=== PATIENT | male | born 1935 | race Caucasian/White ===

== ENCOUNTER 2019-08-14 11:12 | Emergency (ER) | payer MEDICARE, BC ==
[2019-08-14 11:24] VITALS: BP 181/81; PULSE 51
--- NOTE | 2019-08-14 11:40 | EDM.PDOC ---
ED HPI GENERAL MEDICAL PROBLEM - General Chief Complaint: Bite:Animal, Insect Stated Complaint: SWOLLEN LEFT HAND Time Seen by Provider: 08/14/19 11:29 Source of Information: Reports: Patient History Limitations: Reports: No Limitations - History of Present Illness INITIAL COMMENTS - FREE TEXT/NARRATIVE: 83-year-old male presents to the ED with increased swelling and limited mobility in his left index finger. Patient reports being hit repeatedly left dorsal hand and volar and dorsal aspect of his left index finger over a week ago. He did follow-up with his primary care physician Dr. Nielsen who prescribed tetanus toxoid update and antibiotic 3 times daily which he finished. He finished it 2 days ago. Presumably it was cephalexin. Reports the finger remains markedly swollen and is becoming more red and swollen over the last 48 hours since he discontinued the antibiotics. No systemic signs of illness such as fever chills nausea or vomiting. He has no redness traveling up his dorsal hand or wrist. Onset: Sudden Onset Date: 08/05/19 Duration: Day(s):, Getting Worse Location: Reports: Upper Extremity, Left (Left index finger) Quality: Reports: Ache, Other (Redness and swelling worsening) Severity: Moderate Improves with: Reports: None Worsens with: Reports: None Context: Reports: Trauma (Multiple cat bites). Denies: Activity, Exercise, Lifting, Sick Contact, Other ( as ago) Associated Symptoms: Reports: No Other Symptoms Treatments RN CHRONIC: Reports: Other (see below) (None.) - Related Data Allergies Allergy/AdvReac Type Severity Reaction Status Date / Time venom-honey bee Allergy Cannot Verified 08/14/19 11:24 [bee venom (honey bee)] Remember Home Meds: Home Meds Aspirin [Carroll Aspirin] 81 mg PO DAILY 02/18/16 [History] Fluticasone Propionate [Flonase] 1 spray NASBOTH ASDIRECTED PRN 02/18/16 [ History] Losartan/Hydrochlorothiazide [Losartan-HCTZ 100-25 MG] 1 tab PO DAILY 02/18/16 [ History] Simvastatin 20 mg PO DAILY 02/18/16 [History] metFORMIN HCl [Metformin HCl] 1,000 mg PO BID 02/18/16 [History] Amoxicillin/Potassium Clav [Augmentin 500-125 Tablet] 1 each PO BID #18 tablet 08/14/19 [Rx] Past Medical History HEENT History: Reports: Allergic Rhinitis Cardiovascular History: Reports: High Cholesterol, Hypertension Musculoskeletal History: Reports: Arthritis, Osteoarthritis Endocrine/Metabolic History: Reports: Diabetes, Type II (Currently on diet and metformin 1000 mg twice a day) Social & Family History - Living Situation & Occupation Living situation: Reports: Occupation: Retired ED ROS GENERAL - Review of Systems Review Of Systems: See Below Constitutional: Denies: Fever, Chills, Malaise, Weakness, Fatigue, Decreased Appetite, Weight Loss HEENT: Reports: Glasses Respiratory: Reports: No Symptoms Cardiovascular: Reports: Blood Pressure Problem, Dyspnea on Exertion. Denies: Edema, Lightheadedness Endocrine: Reports: Fatigue GI/Abdominal: Reports: No Symptoms : Reports: Frequency, Other Musculoskeletal: Reports: Joint Pain (Nocturia 2. Denies hips and low back neck and shoulders at times) Skin: Reports: Bruising, Erythema, Other (Marked swelling of the left index finger to about 2 times normal size with a combination of ecchymoses or dark purple discoloration and swelling. Multiple bites are present and there is some bruising from the dorsal aspect of the PIP joint mostly serous. The finger is only slightly warm to palpation.) Neurological: Reports: No Symptoms Psychiatric: Reports: No Symptoms Hematologic/Lymphatic: Reports: No Symptoms Immunologic: Reports: No Symptoms ED EXAM, ANIMAL BITE - Physical Exam Exam: See Below Exam Limited By: No Limitations General Appearance: Alert, WD/WN, No Apparent Distress, Other (Vital signs show temperature 35.9 which is likely incorrect. Pulse is sinus bradycardia at 51. Respiratory 15 sats 98% BP elevated 1 8181.) Eye Exam: Bilateral Eye: Normal Inspection Throat/Mouth: Normal Inspection, Normal Lips, Normal Oropharynx Head: Atraumatic, Normocephalic Neck: Normal Inspection, Supple, Non-Tender, Full Range of Motion. No: Lymphadenopathy (L), Lymphadenopathy (R) Respiratory/Chest: No Respiratory Distress, Lungs Clear, Normal Breath Sounds, No Accessory Muscle Use Cardiovascular: Normal Peripheral Pulses, Regular Rate, Rhythm, No Edema, No Murmur, No Rub, Other (Mildly hypertensive at the time of initial exam systolic hypertension) Extremities: Other (Examination of the left hand shows multiple healing bites to the dorsal aspect of his left hand and wrist. Major injury suffered was to the left index finger which is markedly swollen and slightly erythematous and slightly warm to palpation. There is serous drainage coming from the dorsal aspect of the PIP joint. No fluctuation of the tissues they are fairly firm to palpation suggesting inflammation only and no abscess. The entire finger is involved. There is no lymphangitis of the dorsal aspect of the left hand or forearm although there is a slight pink erythema over the MCP joint of the left finger.) Neurological: Alert, Oriented, CN II-XII Intact, Normal Cognition Psychiatric: Normal Affect, Normal Mood Skin Exam: Other Course - Vital Signs Text/Narrative:: 83-year-old male presents to the ED with a cat bite to the dorsal aspect of his left hand and left index finger that occurred over 10 days ago. He was seen by his primary care physician 2 days later and started on cephalexin presumably-- as the antibiotic was 3 times daily but the patient can't remember for sure what anabolic he was on. This antibiotic and Thursday and he really thinks that the swelling and redness of the index finger are worsening. Examination reveals cellulitis involving the left index finger but the hand wounds are healing satisfactorily. Suspect the finger may have suffered deeper bites. He has very limited ability to flex at the PIP joint and at the MCP joint due to swelling. The wound is very minimally warm to palpation and I do not believe needs to be opened and drained at this time. Plan clindamycin 900 mg IV Augmentin 500/125 mg by mouth now and to be taken twice a day for the next 10 days. He is to expect marked improvement in the swelling over the next 72 hours. I had him take a picture of the finger with his cell phone and to follow-up with Dr. Nielsen in 3 days time. Last Recorded V/S: Last Vital Signs Temp 35.9 C 08/14/19 11:18 Pulse 51 L 08/14/19 11:18 Resp 15 08/14/19 11:18 BP 181/81 H 08/14/19 11:18 Pulse Ox 98 08/14/19 11:18 - Orders/Labs/Meds Orders: Active Orders 24 hr Category Date Time Status Peripheral IV Care [RC] . DIRECTED Care 08/14/19 11:41 Active CBC WITH AUTO DIFF [HEME] Stat Lab 08/14/19 11:56 Ordered CRP [C-REACTIVE PROTEIN] [CHEM] Stat Lab 08/14/19 11:56 Ordered Sodium Chloride 0.9% [Saline Flush] Med 08/14/19 11:41 Active 10 ml FLUSH ASDIRECTED PRN Peripheral IV Insertion Adult [OM.PC] Stat Oth 08/14/19 11:40 Ordered Medication Orders Sodium Chloride (Saline Flush) 10 ml FLUSH ASDIRECTED PRN PRN Reason: Keep Vein Open Last Admin: 08/14/19 11:58 Dose: 10 ml Meds: Medications Generic Name Dose Route Start Last Admin Trade Name Freq PRN Reason Stop Dose Admin Sodium Chloride 10 ml 08/14/19 11:41 08/14/19 11:58 Saline Flush FLUSH 10 ml ASDIRECTED PRN Administration Keep Vein Open Discontinued Medications Generic Name Dose Route Start Last Admin Trade Name Freq PRN Reason Stop Dose Admin Amoxicillin/Clavulanate Potassium 1 tab 08/14/19 11:52 08/14/19 12:38 Augmentin 500 Mg\125 Mg PO 08/14/19 11:53 1 tab ONETIME ONE Administration Clindamycin Phosphate 900 mg/ 50 mls @ 100 mls/hr 08/14/19 11:41 08/14/19 11: 57 Premix IV 08/14/19 12:10 100 mls/hr ONETIME ONE Administration - Radiology Interpretation Free Text/Narrative:: 83-year-old male presents to the ED for evaluation of increased swelling and erythema of the left index finger pulse being bit by his own cat 9 days ago. He was seen initially in clinic and treated with cephalexin presumably 500 mg 3 times a day for a week which was done 2 days ago. Since finishing the antibiotic she feels that the finger is becoming more swollen and red. He denies that it's any more painful than it was. He has very limited range of motion particularly at the PIP and MCP joints. P does have serous drainage from the dorsal PIP joint. Obvious cellulitis infection of the finger. Fingers about 2 times normal size. Plan clindamycin 900 mg IV. Augmentin 500/125 mg twice a day for the next 10 days with the first tablet provided in the ED today. Advise follow-up with his primary care physician in 72 hours time. - Re-Assessments/Exams Free Text/Narrative Re-Assessment/Exam: 08/14/19 12:42 patient has completed his IV clindamycin 900 mg. He's also received his first tablet of Augmentin 500/125 mg per ora. Discharged home at this time to fill prescription for 18 more tablets of Augmentin 500/125 mg tabs and take a second one tonight at bedtime. Departure - Departure Time of Disposition: 12:32 Disposition: Home, Self-Care 01 Condition: Fair Clinical Impression: Cellulitis of finger of left hand Cat bite of finger Qualifiers: Encounter type: subsequent encounter Qualified Code(s): S61.259D - Open bite of unspecified finger without damage to nail, subsequent encounter - Discharge Information *PRESCRIPTION DRUG MONITORING PROGRAM REVIEWED*: Not Applicable *COPY OF PRESCRIPTION DRUG MONITORING REPORT IN PATIENT GEOVANNI: Not Applicable Prescriptions: Amoxicillin/Potassium Clav [Augmentin 500-125 Tablet] 1 each PO BID #18 tablet Instructions: Animal Bite, Adult, [id number], Cellulitis, Adult Referrals: Ok Nielsen Jr, MD [Primary Care Provider] - Forms: ED Department Discharge Additional Instructions: Evaluation the emergency room today in regards to persistent infection left index finger after being bit by-year-old cat 9 days ago. It appears that initial antibiotics did not cover all of the organisms that are often introduced under the skin from a cat bite. You're treated in the ED with a dose of clindamycin 900 mg intravenously. Also starting Augmentin 500/125 mg in the ED. You need to take this tablet again tonight and then twice daily for the next 9 days to clear up infection completely. Expect the finger and swelling to look much better in the next 72 hours. Suggest follow-up with Dr. Nielsen ideally on Thursday or this coming week for review of infection. - My Orders Last 24 Hours: My Active Orders 08/14/19 11:40 Peripheral IV Insertion Adult [OM.PC] Stat 08/14/19 11:41 Peripheral IV Care [RC] . DIRECTED Sodium Chloride 0.9% [Saline Flush] 10 ml FLUSH ASDIRECTED PRN 08/14/19 11:56 CBC WITH AUTO DIFF [HEME] Stat CRP [C-REACTIVE PROTEIN] [CHEM] Stat - Assessment/Plan Last 24 Hours: My Active Orders 08/14/19 11:40 Peripheral IV Insertion Adult [OM.PC] Stat 08/14/19 11:41 Peripheral IV Care [RC] . DIRECTED Sodium Chloride 0.9% [Saline Flush] 10 ml FLUSH ASDIRECTED PRN 08/14/19 11:56 CBC WITH AUTO DIFF [HEME] Stat CRP [C-REACTIVE PROTEIN] [CHEM] Stat
[2019-08-14] MEDS ORDERED: Sodium Chloride 0.9% 10 ML Syringe FLUSH PRN (11:41)
[2019-08-14] MEDS ORDERED: Clindamycin Phosphate in D5W 900 MG in Premix Bag 1 BAG IV ONE ×2 (11:41)
[2019-08-14] MEDS ORDERED: Amoxicillin/Clavulanate K 500-125 MG Tab PO ONE (11:52)
== END 2019-08-14 13:03 | disposition home or self-care (01) ==
LOC: JD.ED 11:12
DX: L03.012 Cellulitis of left finger (principal); S61.251D Open bite of left index finger without damage to nail, subsequent encounter; I10 Essential (primary) hypertension; E78.00 Pure hypercholesterolemia, unspecified; E11.9 Type 2 diabetes mellitus without complications; Z91.030 Bee allergy status; Z79.899 Other long term (current) drug therapy; Z79.82 Long term (current) use of aspirin; Z79.84 Long term (current) use of oral hypoglycemic drugs; W55.01XD Bitten by cat, subsequent encounter
CPT/HCPCS: 96365; 99283; A9270; J3490

== ENCOUNTER 2021-09-10 12:01 | Emergency (ER) | payer MEDICARE, BC | END 2021-09-10 12:52 | disposition left against medical advice (07) | LOC: JD.ED 12:01 | DX: R09.02 Hypoxemia (principal); Z53.21 Procedure and treatment not carried out due to patient leaving prior to being seen by health care provider ==

== ENCOUNTER 2021-09-10 14:04 | Emergency (ER) | payer MEDICARE, BC ==
[2021-09-10 14:56] VITALS: BP 145/72; PULSE 100
--- NOTE | 2021-09-10 15:07 | EDM.PDOC ---
ED HPI GENERAL MEDICAL PROBLEM - General Chief Complaint: Respiratory Problem Stated Complaint: LOW OXYGEN Time Seen by Provider: 09/10/21 14:57 Source of Information: Reports: Patient History Limitations: Reports: No Limitations - History of Present Illness INITIAL COMMENTS - FREE TEXT/NARRATIVE: 85-year-old male presents to the ED at the request of his surgeon Dr. Ramirez--Dr. Ramirez did work up in the clinic this morning with a bone marrow biopsy and lymph node biopsy. Patient has severe edema up past his knees bilaterally which is come on gradually over the last few months. He has a history of what sounds like a lymphoma found in his abdomen 7 or 8 years ago and has been followed by Dr. Saba-- oncology services. Everything was okay up until the last month or so. He states he suddenly was identified to be B12 deficient and anemic. This is the reason partially for a bone marrow biopsy. Patient denies any fever chills nausea vomiting. Appetite is so-so but he is maintaining his weight. He appreciates that his pants have become too tight and has had to loosen the belt notch or so over the last month. No ulcerations on either lower extremity but he can only wear slippers as his feet are too swollen. They do not seem to really improve overnight. Dr. Ramirez did do a bone marrow biopsy on the right posterior iliac crest and the patient has a large pressure bandage over this area. He also did lymph node biopsy from the left axilla which is giving the patient a mild amount of pain. Onset: Unknown/Unsure (Gradual increased edema over the last 6 weeks with now developing hypoxia.) Onset Date: 07/28/21 Duration: Week(s):, Getting Worse Location: Reports: Chest, Lower Extremity, Left (Mild nonproductive cough marked edema of both lower extremities up past the knees), Lower Extremity, Right ( is occurred over the last 6 weeks severe lower extremity edema past the knees), Other (Increased shortness of breath on minimal exertion and hypoxemia at rest i.e. 90 to 87% at rest. Desaturated to 82% with slow walking to the exam room.) Quality: Reports: Other (Both legs are very heavy and ache a bit. They are not cramping or painful) Severity: Severe Improves with: Reports: Rest (Dyspnea improves with rest) Worsens with: Reports: Movement (He is worse with movement with O2 sats desaturating to 82% on room air) Context: Denies: Activity, Exercise, Lifting, Sick Contact, Trauma, Other Associated Symptoms: Reports: Cough, Loss of Appetite, Malaise, Shortness of Breath, Weakness (Generalized weakness difficulty walking due to both legs weighing so much extra). Denies: No Other Symptoms, Confusion, Chest Pain, cough w sputum (Nonproductive intermittent cough.), Diaphoresis, Fever/Chills, Headaches (Decreased appetite.), Nausea/Vomiting, Rash, Seizure, Syncope Treatments REPAIRER ART OBJECTS: Reports: Other (see below) - Related Data Allergies Allergy/AdvReac Type Severity Reaction Status Date / Time venom-honey bee Allergy Cannot Verified 09/11/21 05:06 [bee venom (honey bee)] Remember Home Meds: Home Meds Aspirin [[place] Aspirin] 81 mg PO DAILY 02/18/16 [History] Fluticasone Propionate [Flonase] 1 spray NASBOTH ASDIRECTED PRN 02/18/16 [History] Losartan/Hydrochlorothiazide [Losartan-HCTZ 100-25 MG] 1 tab PO DAILY 02/18/16 [History] Simvastatin 20 mg PO DAILY 02/18/16 [History] metFORMIN HCl [Metformin HCl] 1,000 mg PO BID 02/18/16 [History] Amoxicillin/Potassium Clav [Augmentin 500-125 Tablet] 1 each PO BID #18 tablet 08/14/19 [Rx] Furosemide [Lasix] 40 mg PO ASDIRECTED #60 tablet 09/10/21 [Rx] Levothyroxine Sodium [Levothyroxine] 100 mcg PO DAILY #30 capsule 09/10/21 [Rx] Past Medical History HEENT History: Reports: Allergic Rhinitis Cardiovascular History: Reports: High Cholesterol, Hypertension Musculoskeletal History: Reports: Arthritis, Osteoarthritis (Affecting knees hips low back neck) Endocrine/Metabolic History: Reports: Diabetes, Type II (Currently on diet and metformin 1000 mg twice a day), Osteopenia, Other (See Below) (Recent diagnosis of B12 deficiency) Oncologic (Cancer) History: Reports: Non-Hodgkin's Lymphoma (Apparently identified 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 He was followed closely by Dr. Saba almost every 6 months. He has never required chemotherapy.) - Past Surgical History HEENT Surgical History: Reports: Cataract Surgery Social & Family History - Family History Family Medical History: No Pertinent Family History - Caffeine Use Caffeine Use: Reports: Coffee, Tea - Living Situation & Occupation Living situation: Reports: Occupation: Retired ED ROS GENERAL - Review of Systems Review Of Systems: See Below Constitutional: Reports: Malaise, Weakness, Fatigue, Decreased Appetite, Other (He states he is holding his own as far as his weight goes.). Denies: Fever, Chills HEENT: Reports: Glasses (Only for reading.), Other (Mildly hard of hearing does not wear hearing aids) Respiratory: Reports: Shortness of Breath, Cough. Denies: Wheezing, Pleuritic Chest Pain, Sputum (Nonproductive), Hemoptysis Cardiovascular: Reports: Blood Pressure Problem, Dyspnea on Exertion, Edema (Increasing edema both lower extremities up past the knees bilaterally over the last 6 to perhaps 8 weeks), Orthopnea. Denies: Chest Pain, Claudication (Chronic hypertension), Palpitations, PND, Syncope, Other Endocrine: Reports: Fatigue GI/Abdominal: Reports: Decreased Appetite (Appetite is so-so.). Denies: Diarrhea, Difficulty Swallowing, Melena, Nausea ( Not really hungry ever.), Vomiting : Reports: Frequency, Other (Known BPH. Up usually twice or 3 times a night to void) Musculoskeletal: Reports: Neck Pain, Shoulder Pain, Back Pain, Other (Knees and hips at times.) Skin: Reports: No Symptoms Neurological: Reports: No Symptoms. Denies: Confusion, Dizziness, Headache, Numbness, Paresthesia Psychiatric: Reports: No Symptoms Hematologic/Lymphatic: Reports: No Symptoms Immunologic: Reports: No Symptoms ED EXAM, GENERAL - Physical Exam Exam: See Below Exam Limited By: No Limitations General Appearance: Alert, WD/WN, No Apparent Distress, Other (Palate in appearance. Temperature is 36.6 degrees. Heart rate 100 and sinus respiratory is 20 with O2 sats of 87% room air. BP 145/72) Eye Exam: Bilateral Eye: Normal Inspection (Mild blepharal pallor bilaterally.), PERRL Throat/Mouth: Normal Voice, Other (Teeth are in poor condition. Tongue is slightly dry and coated. Patient has a area of scab over his right facial cheek over the maxillary sinus where apparently had a cystic lesion that was infected a month ago. It is slowly healing. However it has the appearance of's potential squamous cell car) Head: Atraumatic, Normocephalic, Other (Healing sore right facial cheek he states for the last month. States he developed an ingrown hair and a pustule that then drained. Has been placing topical antibiotic on it every night at bedtime it is approximately 1.3 cm in diameter and is scabbed with no signs of infection at this time) Neck: Normal Inspection, Non-Tender, Limited Range of Motion. No: Supple, Full Range of Motion, Lymphadenopathy (L), Lymphadenopathy (R) Respiratory/Chest: Respiratory Distress (Tachypnea at rest.) Cardiovascular: Regular Rate, Rhythm, No Gallop, No JVD. No: Normal Peripheral Pulses, No Edema Peripheral Pulses: 0: Posterior Tibial (L) (No pulses are palpable below the femorals in either his lower extremity due to severe edema both lower extremities), Posterior Tibial (R), Dorsalis Pedis (L), Dorsalis Pedis (R), 2+: Carotid (L), Carotid (R) GI/Abdominal: Normal Bowel Sounds, Soft, Non-Tender, No Organomegaly, Distended (I felt he was a bit distended and full and dull to percussion across the lower abdomen inferior to the umbilicus combined with mild ascites). No: Guarding, Rebound (Male) Exam: No: Scrotal Swelling, Scrotum Tenderness (L), Testicular Tenderness (L) Back Exam: Other (Mild kyphosis thoracic spine. Patient has had bone marrow biopsy with a large pressure dressing on the right lower back where bone marrow biopsy was done this morning.) Neurological: Alert, Oriented, CN II-XII Intact, Normal Cognition Psychiatric: Normal Affect, Normal Mood Skin Exam: Warm, Dry, Intact, Pallor. No: Normal Color #1 Interpretation EKG Date: 09/10/21 Time: 15:21 Rhythm: Other (Sinus arrhythmia with a rate of 80- 92/min) Rate (Beats/Min): 86 [place]: Normal P-Wave: Present QRS: Other (Right bundle branch block pattern. Decreased voltage limb leads.) ST-T: Other (Nonspecific T wave flattening aVF) QT: Prolonged (Mildly prolonged) EKG Interpretation Comments: Abnormal ECG Course - Vital Signs Last Recorded V/S: Last Vital Signs Temp 36.6 C 09/10/21 14:40 Pulse 100 09/10/21 14:40 Resp 20 09/10/21 14:40 BP 145/72 H 09/10/21 14:40 Pulse Ox 87 L 09/10/21 14:40 - Orders/Labs/Meds Labs: Laboratory Tests 09/10/21 09/10/21 09/10/21 Range/Units 15:16 15:19 15:30 WBC 6.21 (4.23-9.07) K/mm3 RBC 4.14 L (4.63-6.08) M/mm3 Hgb 10.2 L (13.7-17.5) gm/dl Hct 34.3 L (40.1-51.0) % MCV 82.9 (79.0-92.2) fl MCH 24.6 L (25.7-32.2) pg MCHC 29.7 L (32.2-35.5) g/dl RDW Std Deviation 48.9 H (35.1-43.9) fL Plt Count 400 H (163-337) K/mm3 MPV 9.5 (9.4-12.3) fl Neut % (Auto) 62.0 (34.0-67.9) % Lymph % (Auto) 25.3 (21.8-53.1) % [place] % (Auto) 11.1 (5.3-12.2) % Eos % (Auto) 0.5 L (0.8-7.0) Baso % (Auto) 0.8 (0.1-1.2) % Neut # (Auto) 3.85 (1.78-5.38) K/mm3 Lymph # (Auto) 1.57 (1.32-3.57) K/mm3 [place] # (Auto) 0.69 (0.30-0.82) K/mm3 Eos # (Auto) 0.03 L (0.04-0.54) K/mm3 Baso # (Auto) 0.05 (0.01-0.08) K/mm3 PT (9.7-12.0) SECONDS INR APTT (21.7-31.4) SECONDS D-Dimer, Quantitative (0.19-0.50) mg/L Puncture Site Rt radial ABG pH 7.33 L (7.35-7.45) ABG pCO2 50.6 H (35.0-45.0) mmHg ABG pO2 56.0 L (80.0-100.0) mmHg ABG HCO3 25.8 (22.0-26.0) meq/L ABG O2 Saturation 84.3 L (96.0-97.0) % ABG Base Excess 0.1 (-2-2.0) Max Test Positive O2 Delivery Device Room air Sodium (136-145) mEq/L Potassium (3.5-5.1) mEq/L Chloride (98-107) mEq/L Carbon Dioxide (21-32) mEq/L Anion Gap (5-15) BUN (7-18) mg/dL Creatinine (0.7-1.3) mg/dL Est Cr Clr Drug Dosing mL/min Estimated GFR (MDRD) (>60) mL/min BUN/Creatinine Ratio (14-18) Glucose (70-99) mg/dL Calcium (8.5-10.1) mg/dL Magnesium (1.8-2.4) mg/dL Total Bilirubin (0.2-1.0) mg/dL AST (15-37) U/L ALT (16-63) U/L Alkaline Phosphatase (46-116) U/L Troponin I (0.00-0.056) ng/mL C-Reactive Protein (<1.0) mg/dL NT-Pro-B Natriuret Pep (0-450) pg/mL Total Protein (6.4-8.2) g/dl Albumin (3.4-5.0) g/dl Globulin gm/dL Albumin/Globulin Ratio (1-2) TSH 3rd Generation (0.358-3.74) uIU/mL SARS-CoV-2 RNA (MARVIN) Negative (NEGATIVE) 09/10/21 09/10/21 09/10/21 Range/Units 15:30 15:30 15:30 WBC (4.23-9.07) K/mm3 RBC (4.63-6.08) M/mm3 Hgb (13.7-17.5) gm/dl Hct (40.1-51.0) % MCV (79.0-92.2) fl MCH (25.7-32.2) pg MCHC (32.2-35.5) g/dl RDW Std Deviation (35.1-43.9) fL Plt Count (163-337) K/mm3 MPV (9.4-12.3) fl Neut % (Auto) (34.0-67.9) % Lymph % (Auto) (21.8-53.1) % [place] % (Auto) (5.3-12.2) % Eos % (Auto) (0.8-7.0) Baso % (Auto) (0.1-1.2) % Neut # (Auto) (1.78-5.38) K/mm3 Lymph # (Auto) (1.32-3.57) K/mm3 [place] # (Auto) (0.30-0.82) K/mm3 Eos # (Auto) (0.04-0.54) K/mm3 Baso # (Auto) (0.01-0.08) K/mm3 PT 11.7 (9.7-12.0) SECONDS INR 1.06 APTT 24.8 (21.7-31.4) SECONDS D-Dimer, Quantitative 2.02 H (0.19-0.50) mg/L Puncture Site ABG pH (7.35-7.45) ABG pCO2 (35.0-45.0) mmHg ABG pO2 (80.0-100.0) mmHg ABG HCO3 (22.0-26.0) meq/L ABG O2 Saturation (96.0-97.0) % ABG Base Excess (-2-2.0) Max Test O2 Delivery Device Sodium 143 (136-145) mEq/L Potassium 5.1 (3.5-5.1) mEq/L Chloride 107 (98-107) mEq/L Carbon Dioxide 27 (21-32) mEq/L Anion Gap 14.1 (5-15) BUN 39 H (7-18) mg/dL Creatinine 1.6 H (0.7-1.3) mg/dL Est Cr Clr Drug Dosing 33.84 mL/min Estimated GFR (MDRD) 41 (>60) mL/min BUN/Creatinine Ratio 24.4 H (14-18) Glucose 114 H (70-99) mg/dL Calcium 9.0 (8.5-10.1) mg/dL Magnesium 1.4 L (1.8-2.4) mg/dL Total Bilirubin 0.3 (0.2-1.0) mg/dL AST 26 (15-37) U/L ALT 12 L (16-63) U/L Alkaline Phosphatase 112 (46-116) U/L Troponin I < 0.017 (0.00-0.056) ng/mL C-Reactive Protein 1.0 (<1.0) mg/dL NT-Pro-B Natriuret Pep 37316 H (0-450) pg/mL Total Protein 8.5 H (6.4-8.2) g/dl Albumin 2.6 L (3.4-5.0) g/dl Globulin 5.9 gm/dL Albumin/Globulin Ratio 0.4 L (1-2) TSH 3rd Generation 6.556 H (0.358-3.74) uIU/mL SARS-CoV-2 RNA (MARVIN) (NEGATIVE) Meds: Medications Discontinued Medications Generic Name Dose Route Start Last Admin Trade Name Freq PRN Reason Stop Dose Admin Furosemide 40 mg 09/10/21 19:23 09/10/21 19:32 Furosemide 40 Mg/4 Ml Vial IVPUSH 09/10/21 19:24 40 mg NOW ONE Administration Hydromorphone HCl 0.5 mg 09/10/21 18:24 09/10/21 18:56 Hydromorphone 0.5 Mg/0.5 Ml Syringe IVPUSH 09/10/21 18:25 0.5 mg ONETIME ONE Administration Ondansetron HCl 4 mg 09/10/21 18:24 09/10/21 18:57 Ondansetron 4 Mg/2 Ml Sdv IVPUSH 09/10/21 18:25 4 mg ONETIME ONE Administration Sodium Chloride 10 ml 09/10/21 18:23 09/10/21 18:57 Sodium Chloride 0.9% 10 Ml Syringe FLUSH 10 ml ASDIRECTED PRN Administration Keep Vein Open - Radiology Interpretation Free Text/Narrative:: 85-year-old male presents to the ED after being evaluated for bone marrow biopsy by this morning which she did undergo. Is unclear if he underwent lymph node biopsy as well. 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 Saba almost every 6 months. Over the last 6 weeks things seem to have deteriorated where he is developed B12 deficiency and anemia. This is the reason that the bone marrow biopsy was performed. Concern is whether or not he has a recurrence or lymphoma suddenly became aggressive. He is short of breath on minimal exertion and presents with O2 sats of only 88 to 90% on room air. He has a mild nonproductive cough. He does have some orthopnea. No past history of diagnosed congestive heart failure or ischemic heart disease. He is appreciated increasing edema both lower extremities up past the knees over the last month or more per week. He states his weight is staying stable but there is at least 8 pounds of fluid in each leg. Therefore he may actually be losing weight. Plan he will have routine labs performed including D-dimer and BNP. Depending on his renal function we will decide on CT of his chest abdomen pelvis with or without contrast. In the interim ABGs will be done and be placed on oxygen 2 L/min by nasal cannula. - Re-Assessments/Exams Free Text/Narrative Re-Assessment/Exam: 09/10/21 18:10 White count is 6.21 with the auto differential revealing 62% neutrophils. Hemoglobin is slightly low at 10.2 with hematocrit of 34.3. Platelet count is 400,000 slightly elevated. PT is 11.7 with an INR of 1.06. PTT is 24.8. D-dimer is slightly elevated at 2.02. ABGs revealed a pH of 7.33 with a PCO2 of 50.6 I CO2 retention. PO2 is 56.0 low. O2 saturations are 84.3% on no oxygen. Sodium was 143 with a potassium high normal at 5.1. Chloride 107 with a bicarb of 27. Anion gap is 14.1. BUN is 39 with a creatinine of 1.6. GFR is 41. BUN/creatinine ratio is 24.4 indicating some degree of dehydration. Glucose 114 with a calcium of 9.0. Magnesium is low at 1.4. Total bilirubin is 0.3. AST is 26 with an ALT of 12 and alkaline phosphatase is 112. Troponin I is less than 0.017. C-reactive protein is 1.0. BNP is 11,504. Total protein is 8.5 with an albumin fraction low at 2.6. Globulin is 5.9. TSH is elevated at 6.55 indicating subclinical hypothyroidism. COVID-19 screen is negative. Patient will be given Lasix 40 mg IV but will undergo CT pulmonary angiogram to rule out PE. His renal function is upper limits of ability to give contrast to with a creatinine of 1.6 but he is volume depleted with a BUN of 39. GFR is 41. 09/10/21 19:11 CT pulmonary angiogram has been completed. Pulmonary arteries are well opacified. No filling defects are seen to indicate pulmonary embolism. Thoracic aorta shows mild atherosclerotic calcification with no aneurysm. Mediastinum shows small lymph nodes which are slightly more prominent than usually seen. Heart is slightly enlarged. Visualized upper abdominal structures show small amount of ascites. Soft tissue density is seen within the central abdomen around the abdominal aorta suspicious for adenopathy. There is a small right-sided pleural effusion. Small to moderate size left-sided pleural effusion is also noted. Increased lymph nodes are seen within both axillary regions which are abnormal. Areas noted within the left axillary region of uncertain etiology please correlate. Lung window settings show mild nodularity with in both sides of the pleura which are cysts nonspecific but difficult to exclude early metastatic disease. Slight area of increased density is noted within the lingula most likely representing atelectasis. Mild atelectasis is noted within both lung bases. Bone window settings were reviewed. Scattered degenerative changes noted within the spine. No acute osseous findings identified. Patient is being worked up for recurrence of a lymphoma. Bone marrow biopsy was done at [facility] earlier today by . Lymph node biopsy carried out in the left axilla which is the reason for there is some subcutaneous air in this area. The CT findings are that of widespread lymphoma involving the abdomen, chest and obviously axillary lymph nodes. He does have mild anasarca 09/10/21 19:26 I have once again discussed the results with the patient and his female friend and the patient is adamant he wishes to try things at home. He will be given Lasix 40 mg IV and then an oral dose for home. He will be started on 40 mg of Lasix every morning and 20 mg in the p.m. between 2 and 3:00. This will be for 1 week and tentatively he would could be reduced to 40 mg once a day in the morning. He is to step on a scale daily and write down his weights and report to his physician in a week's time. He will need renal function and serum potassium levels checked at that time. His potassium at present is 5.0 I am not going to add any potassium to his treatment plan at this time. I will start him on thyroid supplementation starting at 100 mcg of levothyroxine daily. Departure - Departure Time of Disposition: 19:29 Disposition: Home, Self-Care 01 Condition: Poor Clinical Impression: Hypoxemia, Congestive heart failure, Ascites, malignant, Bilateral pleural effusion, Dependent edema, Lymphoma involving lung - Discharge Information *PRESCRIPTION DRUG MONITORING PROGRAM REVIEWED*: Not Applicable *COPY OF PRESCRIPTION DRUG MONITORING REPORT IN PATIENT GEOVANNI: Not Applicable Prescriptions: Furosemide [Lasix] 40 mg PO ASDIRECTED #60 tablet Levothyroxine Sodium [Levothyroxine] 100 mcg PO DAILY #30 capsule Instructions: Hypoxia, Hypoxemia Referrals: Reilly Singh MD [Primary Care Provider] - Forms: ED Department Discharge Additional Instructions: Evaluation in the emergency room today at the request of your surgeon . Dr. Ramirez identified that you were retaining a large amount of fluid particularly in your lower extremities and suspect in your abdomen on examination today. He did go ahead with your bone marrow biopsy and left axillary lymph node biopsy and then sent you to the ED for further evaluation. Evaluation in the emergency department reveals that you do have congestive heart failure and are retaining fluid in your legs thighs abdomen and portions of both lower lobes of your lungs. This fluid accumulation has occurred over the last several weeks and probably [address] scan of the chest abdomen pelvis identifies enlarged lymph nodes within the chest and within the abdomen compatible with recurrence of your lymphoma which was diagnosed initially 7 to 8 years ago. Multiple lymph nodes are present in both armpits as you are well aware. You made a decision at this time not to come into the hospital although it is certainly my suggestion. You will need to take water medication Lasix 40 mg every morning and 20 mg mid afternoon or half of the 40 mg tablet between 2 and 3:00 in the afternoon to promote fluid loss. You will need to step on the scale every morning when you first get up and marked down your weight to ensure that we are achieving fluid loss over time. Should arrange follow-up appointment with your physician in 7 days time. You will require further lab test on your kidneys and potassium levels after starting this new medication. Second medication will be thyroid replacement hormone since you were found to be underactive in your thyroid gland on today's evaluation you will need to take levothyroxine 100 mcg tablet once daily every morning about 1/2-hour before you take any food or any other medications. You may certainly return to the emergency room at any time if you feel increased shortness of breath or that you are not getting better. Sepsis Event Note (ED) - Evaluation Sepsis Screening Result: No Definite Risk
[2021-09-10] MEDS ORDERED: Sodium Chloride 0.9% 10 ML Syringe FLUSH PRN (18:23)
[2021-09-10] MEDS ORDERED: Ondansetron 4 MG/2 ML SDV IVPUSH ONE (18:24)
[2021-09-10] MEDS ORDERED: HYDROmorphone 0.5 MG/0.5 ML Syringe IVPUSH ONE (18:24)
--- NOTE | 2021-09-10 19:08 | CT ---
CT chest Technique: Multiple axial sections through the chest were obtained. Intervenous contrast was utilized. Study has been performed as a pulmonary angiogram protocol. Comparison: No prior chest imaging is available. Findings: Pulmonary arteries are well opacified. No filling defects are seen to indicate pulmonary embolism. Thoracic aorta shows mild atherosclerotic calcification with no aneurysm. Mediastinum shows small lymph nodes which are slightly more than usually seen. Heart is slightly enlarged. Visualized upper abdominal structures shows small amount of ascites. Soft tissue density is seen within the central abdomen around the abdominal aorta suspicious for adenopathy. Small right-sided pleural effusion is seen. Small to moderate size left-sided pleural effusion is noted. Increased lymph nodes are seen within both axillary regions which are abnormal. Air is noted within the left axillary region of uncertain etiology and please correlate. Lung window settings show mild nodularity within both sides of the pleura which are nonspecific but difficult to exclude early metastatic disease. Slight area of increased density is noted within the lingula most likely representing atelectasis. Mild atelectasis is noted within both lung bases. Bone window settings were reviewed. Scattered degenerative change is noted within the spine. No acute osseous finding is appreciated. Impression: 1. No findings of pulmonary embolism. 2. Adenopathy is seen within both axillary regions and difficult to exclude neoplasm. Additional adenopathy is noted within the mediastinum. 3. Air is seen within the left axillary region of uncertain etiology and please correlate if clinical reason is known. 4. Small right-sided pleural effusion and moderate left-sided pleural effusion. Small amount of ascites is seen around the liver. 5. Possible adenopathy around the abdominal aorta. Formal contrast-enhanced CT abdomen and pelvis study is needed. 6. Mild nodularity around both pleura within the lungs. Difficult to exclude early metastasis. Diagnostic code #9
[2021-09-10] MEDS ORDERED: Furosemide 40 MG/4 ML VIAL IVPUSH ONE (19:23)
== END 2021-09-10 20:12 | disposition home or self-care (01) ==
LOC: JD.ED 14:04
DX: R09.02 Hypoxemia (principal); J90 Pleural effusion, not elsewhere classified; I11.0 Hypertensive heart disease with heart failure; I50.9 Heart failure, unspecified; C85.82 Other specified types of non-Hodgkin lymphoma, intrathoracic lymph nodes; R18.0 Malignant ascites; E78.00 Pure hypercholesterolemia, unspecified; I10 Essential (primary) hypertension; M19.90 Unspecified osteoarthritis, unspecified site; E11.9 Type 2 diabetes mellitus without complications; Z79.84 Long term (current) use of oral hypoglycemic drugs; Z91.030 Bee allergy status; Z79.82 Long term (current) use of aspirin; Z79.899 Other long term (current) drug therapy; Z20.822 Contact with and (suspected) exposure to COVID-19
CPT/HCPCS: 36415; 36600; 71275; 80053; 82803; 83735; 83880; 84443; 84484; 85025; 85379; 85610; 85730; 86140; 93005; 96374; 96375; 99284; J1170; J1940; J2405; U0002

== ENCOUNTER 2021-09-11 04:59 | Inpatient (IN) | payer MEDICARE, BC ==
--- NOTE | 2021-09-11 05:49 | EDM.PDOC ---
<Clinton Stern A - Last Filed: 09/11/21 13:58> ED HPI GENERAL MEDICAL PROBLEM - General Chief Complaint: General Stated Complaint: [facility] Time Seen by Provider: 09/11/21 05:18 - Related Data Allergies Allergy/AdvReac Type Severity Reaction Status Date / Time venom-honey bee Allergy Cannot Verified 09/11/21 05:06 [bee venom (honey bee)] Remember Home Meds: Home Meds Aspirin [[place] Aspirin] 81 mg PO DAILY 02/18/16 [History] Fluticasone Propionate [Flonase] 1 spray NASBOTH ASDIRECTED PRN 02/18/16 [History] Losartan/Hydrochlorothiazide [Losartan-HCTZ 100-25 MG] 1 tab PO DAILY 02/18/16 [History] Simvastatin 20 mg PO DAILY 02/18/16 [History] metFORMIN HCl [Metformin HCl] 1,000 mg PO BID 02/18/16 [History] Amoxicillin/Potassium Clav [Augmentin 500-125 Tablet] 1 each PO BID #18 tablet 08/14/19 [Rx] Furosemide [Lasix] 40 mg PO ASDIRECTED #60 tablet 09/10/21 [Rx] Levothyroxine Sodium [Levothyroxine] 100 mcg PO DAILY #30 capsule 09/10/21 [Rx] Course - Re-Assessments/Exams Free Text/Narrative Re-Assessment/Exam: 09/11/21 13:[address] Ramirez and he agreed to the admission for comfort care. Departure - Departure Time of Disposition: 14:00 Disposition: Admitted As Inpatient 68 Condition: Serious Clinical Impression: Lactic acidosis, Ischemic leg, Unresponsive, Hyperkalemia - Discharge Information <Conrad Kaiser A - Last Filed: 09/11/21 19:21> ED HPI GENERAL MEDICAL PROBLEM - General Source of Information: Reports: Patient, Old Records (ED visit 09/10/2021) History Limitations: Reports: Physical Impairment (Pt [place]) - History of Present Illness INITIAL COMMENTS - FREE TEXT/NARRATIVE: Mr. Vásquez is a very pleasant 85-year-old gentleman who is now brought to the ED after he got out of bed and fell around 04:30 this morning. He states that his right ankle hurts - it is unclear if right ankle pain is what caused him to fall, or if he injured his right ankle in the fall. He is also complaining of bilateral lower extremity edema, however, that is a longstanding issue. He denies any other injuries. Medical records indicate that the patient was seen in this ED yesterday, 09/10/2021, after being sent over by his Surgeon, following a bone marrow biopsy and lymph node biopsy yesterday morning, for dyspnea on exertion and low oxygen saturation. Please see that ED record for details, but, in short, his work-up found his D-dimer to be elevated to 2.02, with a CT angiogram negative for pulmonary embolus but suggestive of metastatic disease, his BUN/Cr was elevated at 39/1.6, his magnesium level was depressed at 1.4, his TSH was elevated at 6.556, and his pro-BNP was elevated at 11,504. Admission to the hospital was recommended, but the patient was adamant that he be discharged home, therefore he was discharged with prescriptions for levothyroxine and oral furosemide. In the ED this morning, the patient's initial BP is found to be mildly depressed at 115/48, with slight tachycardia of 102 bpm and slight tachypnea of 25 rpm. He is afebrile, saturating 91% on room air, however, the pulse oximeter waveform is poor and felt likely to be inaccurately low. Nevertheless, the patient was placed on 2 L of oxygen per nasal cannula. The patient appears to be somewhat sleepy, but easily aroused to verbal stimuli. He is in no acute distress. He is very hard of hearing, and does not appear to understand most of my questions. PMHx, PSHx, and SocHx per prior medical records. The patient's PCP is Dr. Reilly Singh. His Oncologist is Dr. Tab Decker. His Surgeon is Dr. Librado Ramirez. His vaccination status is not known. Past Medical History HEENT History: Reports: Allergic Rhinitis, Impaired Vision Other HEENT History: Wears glasses Cardiovascular History: Reports: High Cholesterol, Hypertension Musculoskeletal History: Reports: Arthritis, Osteoarthritis Endocrine/Metabolic History: Reports: Diabetes, Type II, Osteopenia, Other (See Below) Oncologic (Cancer) History: Reports: Non-Hodgkin's Lymphoma - Past Surgical History HEENT Surgical History: Reports: Cataract Surgery Social & Family History - Family History Family Medical History: No Pertinent Family History - Tobacco Use Tobacco Use Status *Q: Unknown Ever Used Tobacco - Caffeine Use Caffeine Use: Reports: Coffee, Tea - Living Situation & Occupation Living situation: Reports: Occupation: Retired ED ROS GENERAL - Review of Systems Review Of Systems: Unable To Obtain Reason Not Obtained: Patient does not understand questions ED EXAM, GENERAL - Physical Exam Exam: See Below Exam Limited By: No Limitations General Appearance: No Apparent Distress, Lethargic (Somnolent, but arousable to verbal stimuli) Eye Exam: Bilateral Eye: EOMI, Normal Inspection Ears: Normal External Exam, Hearing Loss Nose: Normal Inspection Throat/Mouth: Normal Inspection, Normal Lips, No Airway Compromise Head: Atraumatic, Normocephalic Neck: Normal Inspection, Full Range of Motion Respiratory/Chest: No Respiratory Distress, Lungs Clear, Normal Breath Sounds, No Accessory Muscle Use Cardiovascular: Normal Peripheral Pulses, No Gallop, No JVD, No Murmur, No Rub, Tachycardia (regular) Peripheral Pulses: 0: Femoral (L), Femoral (R), Popliteal (L), Popliteal (R), Posterior Tibial (L), Posterior Tibial (R), Dorsalis Pedis (L), Dorsalis Pedis (R), 1+: Radial (L), Radial (R) GI/Abdominal: Normal Bowel Sounds, Soft, Non-Tender, No Organomegaly, No Distention, No Abnormal Bruit, No Mass Back Exam: Normal Inspection, Full Range of Motion, NT Extremities: Other (2+ pitting pretibial LLE, 3+ RLE. Both lower extremities are very cool to palpation with no palpable pulses, but the distal right lower extremity is very cold with no capillary refill and completely insensate. Pt unable to move Rt toes; has some movement to Lt toes. Rt foot with purplish hue.) Neurological: Other (Somnolent but arousable) Psychiatric: Normal Affect Skin Exam: Dry, Intact, No Rash Course - Vital Signs Last Recorded V/S: Last Vital Signs Temp 36.6 C 09/11/21 15:34 Pulse 111 H 09/11/21 15:34 Resp 36 H 09/11/21 15:34 BP 87/41 L 09/11/21 15:34 Pulse Ox 82 L 09/11/21 15:34 - Orders/Labs/Meds Orders: Active Orders 24 hr Category Date Time Status Patient Status [ADT] Routine ADT 09/11/21 12:18 Active Nothing per Oral Now Diet [DIET] Diet 09/11/21 Dinner Active Atropine 1% [Atropine 1% Ophth Soln] Med 09/11/21 12:22 Active See Dose Instructions SL Q2H PRN Sodium Chloride 0.9% [Saline Flush] Med 09/11/21 12:18 Active 10 ml FLUSH ASDIRECTED PRN Peripheral IV Insertion Adult [OM.PC] Routine Oth 09/11/21 12:18 Ordered Saline Lock Insert [OM.PC] Routine Oth 09/11/21 12:18 Ordered Resuscitation Status Routine Resus Stat 09/11/21 12:18 Ordered Medication Orders Atropine Sulfate (Atropine 1% Ophth Soln 5 Ml Bottle) 0 ml SL Q2H PRN PRN Reason: Copius Secretions Morphine Sulfate 100 mg/ (Sodium Chloride) 100 mls @ 2 mls/hr IV TITRATE AMEYA; Protocol Last Admin: 09/11/21 16:28 Dose: 2 mg/hr, 2 mls/hr Documented by: WAIDMIC Lorazepam (Lorazepam 2 Mg/Ml Sdv) 2 mg IVPUSH Q1H PRN PRN Reason: Agitation Last Admin: 09/11/21 15:47 Dose: 2 mg Documented by: WAIDMIC Sodium Chloride (Sodium Chloride 0.9% 10 Ml Syringe) 10 ml FLUSH ASDIRECTED PRN PRN Reason: Keep Vein Open Labs: Laboratory Tests 09/11/21 09/11/21 09/11/21 Range/Units 05:14 05:49 06:02 WBC 8.89 (4.23-9.07) K/mm3 RBC 4.14 L (4.63-6.08) M/mm3 Hgb 10.2 L (13.7-17.5) gm/dl Hct 34.9 L (40.1-51.0) % MCV 84.3 (79.0-92.2) fl MCH 24.6 L (25.7-32.2) pg MCHC 29.2 L (32.2-35.5) g/dl RDW Std Deviation 50.4 H (35.1-43.9) fL Plt Count 365 H (163-337) K/mm3 MPV 9.6 (9.4-12.3) fl Neutrophils % (Manual) 85 H (40-60) % Band Neutrophils % 0 (0-10) % Lymphocytes % (Manual) 11 L (20-40) % Atypical Lymphs % 0 % Monocytes % (Manual) 4 (2-10) % Eosinophils % (Manual) 0 L (0.8-7.0) % Basophils % (Manual) 0 L (0.2-1.2) Platelet Estimate Adequate Polychromasia 1+ slight Hypochromasia 1+ slight Anisocytosis 1+ slight RBC Morph Comment Not Reportable Puncture Site Lt radial ABG pH 7.15 L* (7.35-7.45) ABG pCO2 73.2 H* (35.0-45.0) mmHg ABG pO2 70.0 L (80.0-100.0) mmHg ABG HCO3 24.3 (22.0-26.0) meq/L ABG O2 Saturation 85.6 L (96.0-97.0) % ABG Base Excess -4.9 L (-2-2.0) O2 Delivery Device Nasal cannula Oxygen Flow Rate 2.0 Sodium (136-145) mEq/L Potassium (3.5-5.1) mEq/L Chloride (98-107) mEq/L Carbon Dioxide (21-32) mEq/L Anion Gap (5-15) BUN (7-18) mg/dL Creatinine (0.7-1.3) mg/dL Est Cr Clr Drug Dosing mL/min Estimated GFR (MDRD) (>60) mL/min BUN/Creatinine Ratio (14-18) Glucose (70-99) mg/dL POC Glucose 63 L (70-99) mg/dL Lactic Acid (0.4-2.0) mmol/L Calcium (8.5-10.1) mg/dL Magnesium (1.8-2.4) mg/dL Total Bilirubin (0.2-1.0) mg/dL AST (15-37) U/L ALT (16-63) U/L Alkaline Phosphatase (46-116) U/L Total Protein (6.4-8.2) g/dl Albumin (3.4-5.0) g/dl Globulin gm/dL Albumin/Globulin Ratio (1-2) 09/11/21 09/11/21 09/11/21 Range/Units 06:02 06:02 09:18 WBC (4.23-9.07) K/mm3 RBC (4.63-6.08) M/mm3 Hgb (13.7-17.5) gm/dl Hct (40.1-51.0) % MCV (79.0-92.2) fl MCH (25.7-32.2) pg MCHC (32.2-35.5) g/dl RDW Std Deviation (35.1-43.9) fL Plt Count (163-337) K/mm3 MPV (9.4-12.3) fl Neutrophils % (Manual) (40-60) % Band Neutrophils % (0-10) % Lymphocytes % (Manual) (20-40) % Atypical Lymphs % % Monocytes % (Manual) (2-10) % Eosinophils % (Manual) (0.8-7.0) % Basophils % (Manual) (0.2-1.2) Platelet Estimate Polychromasia Hypochromasia Anisocytosis RBC Morph Comment Puncture Site ABG pH (7.35-7.45) ABG pCO2 (35.0-45.0) mmHg ABG pO2 (80.0-100.0) mmHg ABG HCO3 (22.0-26.0) meq/L ABG O2 Saturation (96.0-97.0) % ABG Base Excess (-2-2.0) O2 Delivery Device Oxygen Flow Rate Sodium 142 (136-145) mEq/L Potassium 6.8 H* D (3.5-5.1) mEq/L Chloride 105 (98-107) mEq/L Carbon Dioxide 24 (21-32) mEq/L Anion Gap 19.8 H (5-15) BUN 42 H (7-18) mg/dL Creatinine 2.3 H (0.7-1.3) mg/dL Est Cr Clr Drug Dosing 22.75 mL/min Estimated GFR (MDRD) 27 (>60) mL/min BUN/Creatinine Ratio 18.3 H (14-18) Glucose 95 (70-99) mg/dL POC Glucose (70-99) mg/dL Lactic Acid 4.7 H* 2.6 H* (0.4-2.0) mmol/L Calcium 8.6 (8.5-10.1) mg/dL Magnesium 1.6 L (1.8-2.4) mg/dL Total Bilirubin 0.6 (0.2-1.0) mg/dL AST 428 H (15-37) U/L ALT 179 H (16-63) U/L Alkaline Phosphatase 119 H (46-116) U/L Total Protein 8.5 H (6.4-8.2) g/dl Albumin 2.7 L (3.4-5.0) g/dl Globulin 5.8 gm/dL Albumin/Globulin Ratio 0.5 L (1-2) 09/11/21 Range/Units 09:23 WBC (4.23-9.07) K/mm3 RBC (4.63-6.08) M/mm3 Hgb (13.7-17.5) gm/dl Hct (40.1-51.0) % MCV (79.0-92.2) fl MCH (25.7-32.2) pg MCHC (32.2-35.5) g/dl RDW Std Deviation (35.1-43.9) fL Plt Count (163-337) K/mm3 MPV (9.4-12.3) fl Neutrophils % (Manual) (40-60) % Band Neutrophils % (0-10) % Lymphocytes % (Manual) (20-40) % Atypical Lymphs % % Monocytes % (Manual) (2-10) % Eosinophils % (Manual) (0.8-7.0) % Basophils % (Manual) (0.2-1.2) Platelet Estimate Polychromasia Hypochromasia Anisocytosis RBC Morph Comment Puncture Site ABG pH (7.35-7.45) ABG pCO2 (35.0-45.0) mmHg ABG pO2 (80.0-100.0) mmHg ABG HCO3 (22.0-26.0) meq/L ABG O2 Saturation (96.0-97.0) % ABG Base Excess (-2-2.0) O2 Delivery Device Oxygen Flow Rate Sodium (136-145) mEq/L Potassium (3.5-5.1) mEq/L Chloride (98-107) mEq/L Carbon Dioxide (21-32) mEq/L Anion Gap (5-15) BUN (7-18) mg/dL Creatinine (0.7-1.3) mg/dL Est Cr Clr Drug Dosing mL/min Estimated GFR (MDRD) (>60) mL/min BUN/Creatinine Ratio (14-18) Glucose (70-99) mg/dL POC Glucose 87 (70-99) mg/dL Lactic Acid (0.4-2.0) mmol/L Calcium (8.5-10.1) mg/dL Magnesium (1.8-2.4) mg/dL Total Bilirubin (0.2-1.0) mg/dL AST (15-37) U/L ALT (16-63) U/L Alkaline Phosphatase (46-116) U/L Total Protein (6.4-8.2) g/dl Albumin (3.4-5.0) g/dl Globulin gm/dL Albumin/Globulin Ratio (1-2) Meds: Medications Generic Name Dose Route Start Last Admin Trade Name Freq PRN Reason Stop Dose Admin Atropine Sulfate 0 ml 09/11/21 12:22 Atropine 1% Ophth Soln 5 Ml Bottle SL Q2H PRN Copius Secretions Morphine Sulfate 100 mg/ 100 mls @ 2 mls/hr 09/11/21 15:15 09/11/21 16:28 Sodium Chloride IV 2 mg/hr TITRATE AMEYA 2 mls/hr Administration Protocol 2 MG/HR Lorazepam 2 mg 09/11/21 15:43 09/11/21 15:47 Lorazepam 2 Mg/Ml Sdv IVPUSH 2 mg Q1H PRN Administration Agitation Sodium Chloride 10 ml 09/11/21 12:18 Sodium Chloride 0.9% 10 Ml Syringe FLUSH ASDIRECTED PRN Keep Vein Open Discontinued Medications Generic Name Dose Route Start Last Admin Trade Name Freq PRN Reason Stop Dose Admin Sodium Chloride 500 mls @ 1,000 mls/hr 09/11/21 08:49 09/11/21 09:25 Normal Saline IV 09/11/21 09:18 1,000 mls/hr .BOLUS ONE Administration Morphine Sulfate 100 mg/ 100 mls @ 2 mls/hr 09/11/21 13:30 Sodium Chloride IV CONTINUOUS AMEYA Protocol 2 MG/HR Lorazepam 2 mg 09/11/21 12:22 Lorazepam 2 Mg/Ml Sdv IM Q1H PRN Agitation - Re-Assessments/Exams Free Text/Narrative Re-Assessment/Exam: 09/11/21 05:46 The patient's distal right leg, ankle, and foot are very pale and cold to palpation and completely insensate. He is unable to move his toes when asked. No right lower extremity (or LLE) pulses are palpable. While the patient likely has significant peripheral vascular disease involving both of his lower extremities, I am concerned about a distal right lower extremity arterial occlusion. I have therefore ordered an arterial Doppler of the right lower extremity to be performed KRISHNA. In the meantime, we will obtain x-rays of the right ankle to make sure that he did not actually injure it when he fell this morning, along with some blood work and an ABG. 09/11/21 07:01 3-view radiographs of the right ankle are read by Dr. Rebolledo as: 1. Findings as described above. 2. No acute bony abnormality is seen on right ankle study. 09/11/21 07:24 Doppler ultrasound of the right lower extremity is read by Dr. Rebolledo as: 1. Decreased arterial velocity measurements within the superficial femoral artery as well as diminished velocities within the peroneal, posterior tibial and dorsalis pedis arteries. Findings are compatible with multilevel and fairly severe arterial stenosis. 2. Mild thrombophlebitis within the thigh. 09/11/21 08:14 The patient's CBC is remarkable for an H/H slightly depressed at 10.2/34.9, with slight thrombocytosis of 365,000, and the remainder of his CBC being unremarkable. His CMP is remarkable for hyperkalemia of 6.8, and a BUN/Cr elevated at 42/2.3. His AST/ALT are significantly elevated at 428/179, an alkaline phosphatase slightly elevated at 119, and the remainder of his CMP being unremarkable. His magnesium level is slightly depressed at 1.6. His lactic acid level is elevated at 4.7. His ABG demonstrates a primary respiratory acidosis with secondary metabolic acidosis and metabolic alkalosis. The patient's potassium was 5.1 yesterday, with a BUN/Cr of 39/1.6. His AST/ALT were 26/1.2, respectively. The patient appears to have an ischemic distal right lower extremity. He needs a Vascular Surgeon and an ICU bed, however, we have contacted [facility], [facility], [facility], [facility], [place] in [facility], [place], and [facility], finding no bed availability. Case discussed with Thania at the [facility]. She will endeavor to find a suitable bed for the patient. 09/11/21 08:59 At present, the patient is lying on his back, staring at the ceiling. I endeavored to ask him what his CODE STATUS was, however, while he follows my movements with his eyes, he did not make any effort to answer my questions. I am concerned that the patient is dying. I attempted to call the patient's son, Tyler, at the number provided, but got a recording indicating that the line is disconnected. 09/11/21 09:42 Contacted by the patient's son, Tyler. I informed him of the situation. He confirmed that the patient is a , and that he is the patient's only child. I explained that it appears that the patient is dying, and that given his situation, I believe that an attempt at resuscitation would be futile. I therefore recommended that the patient be made DNR/DNI. Tyler agreed. We will attempt to keep the patient comfortable. Tyler is going to make arrangements to come to [place] as fast as possible. Since there is a high likelihood that the patient will prior to Tyler's arrival, Tyler will contact us with the name of a home that we can contact if and when that occurs. Case discussed with Dr. Stern, and care of the patient turned over to him at this time, for change of shift. Departure - Discharge Information *PRESCRIPTION DRUG MONITORING PROGRAM REVIEWED*: Not Applicable Sepsis Event Note (ED) - Evaluation Sepsis Screening Result: No Definite Risk - Focused Exam Vital Signs: Vital Signs Pulse Resp Pulse Ox 09/11/21 10:54 88 14 89 L
--- NOTE | 2021-09-11 06:57 | CR ---
Right ankle: 3 views of the right ankle were obtained. Comparison: No prior ankle study is available. Plantar spur is noted. Vascular calcification is seen. Ankle mortise is symmetric. No acute fracture or dislocation is seen. Impression: 1. Findings as described above. 2. No acute bony abnormality is seen on right ankle study. Diagnostic code #2
--- NOTE | 2021-09-11 07:23 | US ---
Right lower extremity arterial exam: Duplex and color Doppler evaluation was obtained of the right common femoral, superficial femoral, popliteal, peroneal, posterior tibial, and dorsalis pedis arteries. Limitations: Uncooperative patient, Moving leg Comparison: No prior arterial study is available. Findings: Diminished flow is seen within the superficial femoral artery as well as diminished flow within the distal popliteal, peroneal, posterior tibial and dorsalis pedis arteries. There is a hypoechoic area within the right thigh raising the possibility of thrombophlebitis. Impression: 1. Decreased arterial velocity measurements within the superficial femoral artery as well as diminished velocities within the peroneal, posterior tibial and dorsalis pedis arteries. Findings are compatible with multilevel and fairly severe arterial stenosis. 2. Mild thrombophlebitis within the thigh. Diagnostic code #3
[2021-09-11] MEDS ORDERED: Sodium Chloride 0.9% 500 ML IV ONE (08:49)
[2021-09-11] MEDS ORDERED: Sodium Chloride 0.9% 10 ML Syringe FLUSH PRN (12:18)
[2021-09-11] MEDS ORDERED: Atropine 1% Ophth Soln 5 ML BOTTLE SL PRN (12:22)
[2021-09-11] MEDS ORDERED: LORazepam 2 MG/ML SDV IM PRN (12:22)
--- NOTE | 2021-09-11 12:35 | PCM.HP.2 ---
H&P History of Present Illness - General Date of Service: 09/11/21 Admit Problem/Dx: Admission Diagnosis/Problem Admission Diagnosis/Problem Sepsis Source of Information: Provider - History of Present Illness Initial Comments - Free Text/Narative: Patient is an 85-year-old male with a past medical history as listed below who presents to the hospital with complaints of a fall earlier this morning and severe pain in his right foot. For complete details regarding his presentation yesterday to the emergency department as well as his ER course, please see ER documentation by Drs. Kaiser and Leena. 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 The patient was offered admission for abnormalities noted during his ER course. The patient was adamant about going home. The patient was discharged. Apparently, early this morning the patient fell and was experiencing right foot pain. He presented again for evaluation. The patient was somewhat lethargic and was able to answer some questions. His work-up has been notable for significant abnormalities including a dual acid-base disorder including respiratory acidosis as well as a lactic acidosis. This is without compensation his bicarb was normal. He was showing signs of an ischemic right foot which is ultimately causing the lactic acidosis, sepsis picture and development of distributive shock physiology and signs of endorgan failure. As the patient's family could not be contacted for many hours, there were initial efforts to have him transferred to multiple facilities in [place], [place] and [place]. All facilities were unable to take the patient due to lack of ICU bed availability. Around 2 hours ago, the patient's son was able to be contacted. He wished for the patient to be made comfort measures only. He is currently on his way. Patient has not required much medication in order to be comfortable at this point. He is unable to provide any history currently. Patient was referred to the internal medicine service at around noon today 09/11/2021 for end-of-life care. 14 point review of systems was unable to be reviewed with the patient con sidering his mental status. CODE STATUS: DNR/DNI/PLATFORM ARCHITECT. - Related Data Allergies/Adverse Reactions: Allergies Allergy/AdvReac Type Severity Reaction Status Date / Time venom-honey bee Allergy Cannot Verified 09/11/21 05:06 [bee venom (honey bee)] Remember Home Medications: Home Meds Aspirin [Hodgeman Aspirin] 81 mg PO DAILY 02/18/16 [History] Fluticasone Propionate [Flonase] 1 spray NASBOTH ASDIRECTED PRN 02/18/16 [History] Losartan/Hydrochlorothiazide [Losartan-HCTZ 100-25 MG] 1 tab PO DAILY 02/18/16 [History] Simvastatin 20 mg PO DAILY 02/18/16 [History] metFORMIN HCl [Metformin HCl] 1,000 mg PO BID 02/18/16 [History] Amoxicillin/Potassium Clav [Augmentin 500-125 Tablet] 1 each PO BID #18 tablet 08/14/19 [Rx] Furosemide [Lasix] 40 mg PO ASDIRECTED #60 tablet 09/10/21 [Rx] Levothyroxine Sodium [Levothyroxine] 100 mcg PO DAILY #30 capsule 09/10/21 [Rx] Past Medical History HEENT History: Reports: Allergic Rhinitis, Impaired Vision Other HEENT History: Wears glasses Cardiovascular History: Reports: High Cholesterol, Hypertension Musculoskeletal History: Reports: Arthritis, Osteoarthritis Endocrine/Metabolic History: Reports: Diabetes, Type II, Osteopenia, Other (See Below) Oncologic (Cancer) History: Reports: Non-Hodgkin's Lymphoma - Past Surgical History HEENT Surgical History: Reports: Cataract Surgery Social & Family History - Family History Family Medical History: No Pertinent Family History - Tobacco Use Tobacco Use Status *Q: Unknown Ever Used Tobacco - Caffeine Use Caffeine Use: Reports: Coffee, Tea - Living Situation & Occupation Living situation: Reports: Occupation: Retired H&P Review of Systems - Review of Systems: Review Of Systems: Comprehensive ROS is negative, except as noted in HPI. Exam - Exam Exam: See Below - Vital Signs Vital Signs: Last Vital Signs Temp 96.9 F 09/11/21 05:06 Pulse 88 09/11/21 10:54 Resp 14 09/11/21 10:54 BP 115/48 L 09/11/21 05:06 Pulse Ox 89 L 09/11/21 10:54 Weight: 164 lb - Exam Physical Exam Comments:: General: Arousable but mostly lethargic and toxic appearing. Does not answer any questions. HEENT: Normocephalic, evidence of recent fall and ecchymoses.. Extra ocular muscles intact. Pupils equal and reactive to light. Nares are patent. Oropharynx clear without erythema or exudate. Tongue is midline. Neck: Supple without lymphadenopathy. No goiter. Trachea midline. Heart: Sinus tachycardia on the monitor.. S1 and S2 heard without murmur or extrasystoles. Lungs: Clear to auscultation bilaterally but with diminished breath sounds at bases. No wheezing, rales, rhonchi. Abdomen: Soft, nontender, nondistended. Positive bowel sounds. No CVA tenderness. No suprapubic tenderness. Extremities: Warm and perfused. No clubbing, cyanosis, or edema. Darkening of the right forefoot with signs of ischemia. No pulses in both dorsalis pedis and posterior tibial by simple palpation. Integument: No obvious rash or jaundice. No lymphadenopathy. Neurologic: Examination unable to be performed. Psychiatric: Patient is lethargic/encephalopathic. - Patient Data Lab Results Last 24 hrs: Laboratory Results - last 24 hr 09/11/21 09/11/21 09/11/21 Range/Units 05:14 05:49 06:02 WBC 8.89 (4.23-9.07) K/mm3 RBC 4.14 L (4.63-6.08) M/mm3 Hgb 10.2 L (13.7-17.5) gm/dl Hct 34.9 L (40.1-51.0) % MCV 84.3 (79.0-92.2) fl MCH 24.6 L (25.7-32.2) pg MCHC 29.2 L (32.2-35.5) g/dl RDW Std Deviation 50.4 H (35.1-43.9) fL Plt Count 365 H (163-337) K/mm3 MPV 9.6 (9.4-12.3) fl Neutrophils % (Manual) 85 H (40-60) % Band Neutrophils % 0 (0-10) % Lymphocytes % (Manual) 11 L (20-40) % Atypical Lymphs % 0 % Monocytes % (Manual) 4 (2-10) % Eosinophils % (Manual) 0 L (0.8-7.0) % Basophils % (Manual) 0 L (0.2-1.2) Platelet Estimate Adequate Polychromasia 1+ slight Hypochromasia 1+ slight Anisocytosis 1+ slight RBC Morph Comment Not Reportable Puncture Site Lt radial ABG pH 7.15 L* (7.35-7.45) ABG pCO2 73.2 H* (35.0-45.0) mmHg ABG pO2 70.0 L (80.0-100.0) mmHg ABG HCO3 24.3 (22.0-26.0) meq/L ABG O2 Saturation 85.6 L (96.0-97.0) % ABG Base Excess -4.9 L (-2-2.0) O2 Delivery Device Nasal cannula Oxygen Flow Rate 2.0 Sodium (136-145) mEq/L Potassium (3.5-5.1) mEq/L Chloride (98-107) mEq/L Carbon Dioxide (21-32) mEq/L Anion Gap (5-15) BUN (7-18) mg/dL Creatinine (0.7-1.3) mg/dL Est Cr Clr Drug Dosing mL/min Estimated GFR (MDRD) (>60) mL/min BUN/Creatinine Ratio (14-18) Glucose (70-99) mg/dL POC Glucose 63 L (70-99) mg/dL Lactic Acid (0.4-2.0) mmol/L Calcium (8.5-10.1) mg/dL Magnesium (1.8-2.4) mg/dL Total Bilirubin (0.2-1.0) mg/dL AST (15-37) U/L ALT (16-63) U/L Alkaline Phosphatase (46-116) U/L Total Protein (6.4-8.2) g/dl Albumin (3.4-5.0) g/dl Globulin gm/dL Albumin/Globulin Ratio (1-2) 09/11/21 09/11/21 09/11/21 Range/Units 06:02 06:02 09:18 WBC (4.23-9.07) K/mm3 RBC (4.63-6.08) M/mm3 Hgb (13.7-17.5) gm/dl Hct (40.1-51.0) % MCV (79.0-92.2) fl MCH (25.7-32.2) pg MCHC (32.2-35.5) g/dl RDW Std Deviation (35.1-43.9) fL Plt Count (163-337) K/mm3 MPV (9.4-12.3) fl Neutrophils % (Manual) (40-60) % Band Neutrophils % (0-10) % Lymphocytes % (Manual) (20-40) % Atypical Lymphs % % Monocytes % (Manual) (2-10) % Eosinophils % (Manual) (0.8-7.0) % Basophils % (Manual) (0.2-1.2) Platelet Estimate Polychromasia Hypochromasia Anisocytosis RBC Morph Comment Puncture Site ABG pH (7.35-7.45) ABG pCO2 (35.0-45.0) mmHg ABG pO2 (80.0-100.0) mmHg ABG HCO3 (22.0-26.0) meq/L ABG O2 Saturation (96.0-97.0) % ABG Base Excess (-2-2.0) O2 Delivery Device Oxygen Flow Rate Sodium 142 (136-145) mEq/L Potassium 6.8 H* D (3.5-5.1) mEq/L Chloride 105 (98-107) mEq/L Carbon Dioxide 24 (21-32) mEq/L Anion Gap 19.8 H (5-15) BUN 42 H (7-18) mg/dL Creatinine 2.3 H (0.7-1.3) mg/dL Est Cr Clr Drug Dosing 22.75 mL/min Estimated GFR (MDRD) 27 (>60) mL/min BUN/Creatinine Ratio 18.3 H (14-18) Glucose 95 (70-99) mg/dL POC Glucose (70-99) mg/dL Lactic Acid 4.7 H* 2.6 H* (0.4-2.0) mmol/L Calcium 8.6 (8.5-10.1) mg/dL Magnesium 1.6 L (1.8-2.4) mg/dL Total Bilirubin 0.6 (0.2-1.0) mg/dL AST 428 H (15-37) U/L ALT 179 H (16-63) U/L Alkaline Phosphatase 119 H (46-116) U/L Total Protein 8.5 H (6.4-8.2) g/dl Albumin 2.7 L (3.4-5.0) g/dl Globulin 5.8 gm/dL Albumin/Globulin Ratio 0.5 L (1-2) 09/11/21 Range/Units 09:23 WBC (4.23-9.07) K/mm3 RBC (4.63-6.08) M/mm3 Hgb (13.7-17.5) gm/dl Hct (40.1-51.0) % MCV (79.0-92.2) fl MCH (25.7-32.2) pg MCHC (32.2-35.5) g/dl RDW Std Deviation (35.1-43.9) fL Plt Count (163-337) K/mm3 MPV (9.4-12.3) fl Neutrophils % (Manual) (40-60) % Band Neutrophils % (0-10) % Lymphocytes % (Manual) (20-40) % Atypical Lymphs % % Monocytes % (Manual) (2-10) % Eosinophils % (Manual) (0.8-7.0) % Basophils % (Manual) (0.2-1.2) Platelet Estimate Polychromasia Hypochromasia Anisocytosis RBC Morph Comment Puncture Site ABG pH (7.35-7.45) ABG pCO2 (35.0-45.0) mmHg ABG pO2 (80.0-100.0) mmHg ABG HCO3 (22.0-26.0) meq/L ABG O2 Saturation (96.0-97.0) % ABG Base Excess (-2-2.0) O2 Delivery Device Oxygen Flow Rate Sodium (136-145) mEq/L Potassium (3.5-5.1) mEq/L Chloride (98-107) mEq/L Carbon Dioxide (21-32) mEq/L Anion Gap (5-15) BUN (7-18) mg/dL Creatinine (0.7-1.3) mg/dL Est Cr Clr Drug Dosing mL/min Estimated GFR (MDRD) (>60) mL/min BUN/Creatinine Ratio (14-18) Glucose (70-99) mg/dL POC Glucose 87 (70-99) mg/dL Lactic Acid (0.4-2.0) mmol/L Calcium (8.5-10.1) mg/dL Magnesium (1.8-2.4) mg/dL Total Bilirubin (0.2-1.0) mg/dL AST (15-37) U/L ALT (16-63) U/L Alkaline Phosphatase (46-116) U/L Total Protein (6.4-8.2) g/dl Albumin (3.4-5.0) g/dl Globulin gm/dL Albumin/Globulin Ratio (1-2) Result Diagrams: 09/11/21 06:02 09/11/21 06:02 Sepsis Event Note - Evaluation Sepsis Screening Result: No Definite Risk - Focused Exam Vital Signs: Vital Signs Temp Pulse Resp BP Pulse Ox 09/11/21 10:54 88 14 89 L 09/11/21 05:06 96.9 F 102 H 25 H 115/48 L 91 L Problem List Initiated/Reviewed/Updated: Yes Orders Last 24hrs: Active Orders 24 hr Category Date Time Status Patient Status [ADT] Routine ADT 09/11/21 12:18 Active Peripheral IV Care [RC] . DIRECTED Care 09/11/21 12:21 Active Vital Signs [RC] Q4H Care 09/11/21 12:18 Active Nothing per Oral Now Diet [DIET] Diet 09/11/21 Dinner Active Atropine 1% [Atropine 1% Ophth Soln] Med 09/11/21 12:22 Ordered See Dose Instructions SL Q2H PRN LORazepam [Ativan] Med 09/11/21 12:22 Ordered 2 mg IM Q1H PRN Morphine 100 mg Med 09/11/21 12:30 Ordered Sodium Chloride 0.9% [Normal Saline] 90 ml IV CONTINUOUS Sodium Chloride 0.9% [Saline Flush] Med 09/11/21 12:18 Active 10 ml FLUSH ASDIRECTED PRN Peripheral IV Insertion Adult [OM.PC] Routine Oth 09/11/21 12:18 Ordered Saline Lock Insert [OM.PC] Routine Oth 09/11/21 12:18 Ordered Resuscitation Status Routine Resus Stat 09/11/21 12:18 Ordered Medication Orders Atropine Sulfate (Atropine 1% Ophth Soln 5 Ml Bottle) 0 ml SL Q2H PRN PRN Reason: [employer] Secretions Morphine Sulfate 100 mg/ (Sodium Chloride) 100 mls @ 4 mls/hr IV CONTINUOUS AMEYA; Protocol Lorazepam (Lorazepam 2 Mg/Ml Sdv) 2 mg IM Q1H PRN PRN Reason: Agitation Sodium Chloride (Sodium Chloride 0.9% 10 Ml Syringe) 10 ml FLUSH ASDIRECTED PRN PRN Reason: Keep Vein Open Assessment/Plan Comment:: Assessment: Active problems. 1. Sepsis secondary to ischemic foot. 2. Acute liver failure. 3. Ischemic right foot. 4. Acute encephalopathy. 5. Lactic acidosis, uncompensated 6. Severe respiratory acidosis, uncompensated 7. Acute kidney injury. 8. Severe hyperkalemia. Plan: Admit to the hospitalist service for end-of-life management. PLATFORM ARCHITECT order set used. Morphine infusion starting at 4 mg/h. Initial bolus of 6 mg to be given IV as infusion is being started. Scopolamine and atropine as needed for secretions. Ativan 2 mg every hour as needed for agonal breathing or agitation. Zofran IV. Patient's son is on his way. We are awaiting word from him. He is arranging for postmortem care. GI and DVT prophylaxis unnecessary and will not be ordered as well as oxygen. CODE STATUS: DNR/DNI/PLATFORM ARCHITECT.
[2021-09-11] MEDS ORDERED: Morphine 100 MG in Sodium Chloride 0.9% 90 ML IV SCH ×2 (13:30→15:15)
[2021-09-11] MEDS ORDERED: LORazepam 2 MG/ML SDV IVPUSH PRN (15:43)
[2021-09-11 16:02] VITALS: BP 87/41; PULSE 111
--- NOTE | 2021-09-11 17:29 | PCM.DCSUM1 ---
Discharge Summary - Hospital Course Free Text/Narrative:: Patient was admitted to the general medical floor under comfort measures only for the multiple issues as outlined below. The patient was transferred to the general medical floor in the early afternoon hours. GOVERNMENT AUDITOR recall was started. This included a morphine infusion as well as benzodiazepines for air hunger/agitation. A scopolamine patch and further symptomatic control was provided. The patient appeared comfortable from time of transfer and initiation of p rotocol. I was called by the primary nurse at 5:03 PM with the possibility that the patient may have . A examination was performed by myself with the primary floor nurse present who was taking care of the patient. Patient was not responsive to any noxious stimuli. Pupils were fixed and dilated. Auscultative exam for heart sounds and lung sounds were negative x1 minute individually. No sounds were heard. Patient was pronounced at 1705 on 09/11/2021. His son Tyler was called regarding his father's time of . They have opted for [facility] home. Option for autopsy was declined by family. Patient will be discharged according to family wishes. HPI Initial Comments: Patient is an 85-year-old male with a past medical history as listed below who presents to the hospital with complaints of a fall earlier this morning and severe pain in his right foot. For complete details regarding his presentation yesterday to the emergency department as well as his ER course, please see ER documentation by Drs. Kaiser and Leena. 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 The patient was offered admission for abnormalities noted during his ER course. The patient was adamant about going home. The patient was discharged. Apparently, early this morning the patient fell and was experiencing right foot pain. He presented again for evaluation. The patient was somewhat lethargic and was able to answer some questions. His work-up has been notable for significant abnormalities including a dual acid-base disorder including respiratory acidosis as well as a lactic acidosis. This is without compensation his bicarb was normal. He was showing signs of an ischemic right foot which is ultimately causing the lactic acidosis, sepsis picture and development of distributive shock physiology and signs of endorgan failure. As the patient's family could not be contacted for many hours, there were initial efforts to have him transferred to multiple facilities in [place], [place] and [place]. All facilities were unable to take the patient due to lack of ICU bed availability. Around 2 hours ago, the patient's son was able to be contacted. He wished for the patient to be made comfort measures only. He is currently on his way. Patient has not required much medication in order to be comfortable at this point. He is unable to provide any history currently. Patient was referred to the internal medicine service at around noon today 09/11/2021 for end-of-life care. 14 point review of systems was unable to be reviewed with the patient co nsidering his mental status. CODE STATUS: DNR/DNI/GOVERNMENT AUDITOR. - Related Data Allergies/Adverse Reactions: Allergies Allergy/AdvReac Type Severity Reaction Status Date / Time venom-honey bee Allergy Cannot Verified 09/11/21 05:06 [bee venom (honey bee)] Remember Home Medications: Home Meds Aspirin [[place] Aspirin] 81 mg PO DAILY 02/18/16 [History] Fluticasone Propionate [Flonase] 1 spray NASBOTH ASDIRECTED PRN 02/18/16 [History] Losartan/Hydrochlorothiazide [Losartan-HCTZ 100-25 MG] 1 tab PO DAILY 02/18/16 [History] Simvastatin 20 mg PO DAILY 02/18/16 [History] metFORMIN HCl [Metformin HCl] 1,000 mg PO BID 02/18/16 [History] Amoxicillin/Potassium Clav [Augmentin 500-125 Tablet] 1 each PO BID #18 tablet 08/14/19 [Rx] Furosemide [Lasix] 40 mg PO ASDIRECTED #60 tablet 09/10/21 [Rx] Levothyroxine Sodium [Levothyroxine] 100 mcg PO DAILY #30 capsule 09/10/21 [Rx] Past Medical History HEENT History: Reports: Allergic Rhinitis, Impaired Vision Other HEENT History: Wears glasses Cardiovascular History: Reports: High Cholesterol, Hypertension Musculoskeletal History: Reports: Arthritis, Osteoarthritis Endocrine/Metabolic History: Reports: Diabetes, Type II, Osteopenia, Other (See Below) Oncologic (Cancer) History: Reports: Non-Hodgkin's Lymphoma - Past Surgical History HEENT Surgical History: Reports: Cataract Surgery Social & Family History - Family History Family Medical History: No Pertinent Family History - Tobacco Use Tobacco Use Status *Q: Unknown Ever Used Tobacco - Caffeine Use Caffeine Use: Reports: Coffee, Tea - Living Situation & Occupation Living situation: Reports: Occupation: Retired H&P Review of Systems - Review of Systems: Review Of Systems: Comprehensive ROS is negative, except as noted in HPI. Exam - Exam Exam: See Below - Vital Signs Vital Signs: Last Vital Signs Temp 96.9 F 09/11/21 05:06 Pulse 88 09/11/21 10:54 Resp 14 09/11/21 10:54 BP 115/48 L 09/11/21 05:06 Pulse Ox 89 L 09/11/21 10:54 Weight: 164 lb - Exam Physical Exam Comments:: General: Arousable but mostly lethargic and toxic appearing. Does not answer any questions. HEENT: Normocephalic, evidence of recent fall and ecchymoses.. Extra ocular muscles intact. Pupils equal and reactive to light. Nares are patent. Oropharynx clear without erythema or exudate. Tongue is midline. Neck: Supple without lymphadenopathy. No goiter. Trachea midline. Heart: Sinus tachycardia on the monitor.. S1 and S2 heard without murmur or extrasystoles. Lungs: Clear to auscultation bilaterally but with diminished breath sounds at bases. No wheezing, rales, rhonchi. Abdomen: Soft, nontender, nondistended. Positive bowel sounds. No CVA tenderness. No suprapubic tenderness. Extremities: Warm and perfused. No clubbing, cyanosis, or edema. Darkening of the right forefoot with signs of ischemia. No pulses in both dorsalis pedis and posterior tibial by simple palpation. Integument: No obvious rash or jaundice. No lymphadenopathy. Neurologic: Examination unable to be performed. Psychiatric: Patient is lethargic/encephalopathic. - Discharge Data Discharge Date: 09/11/21 Discharge Disposition: 20 Preliminary Cause of *Q: Sepsis & Multi System Organ Failure Condition: - Referral to Home Health Primary Care Physician: Reilly Singh MD - Patient Summary/Data Hospital Course: As noted above. - Discharge Plan *PRESCRIPTION DRUG MONITORING PROGRAM REVIEWED*: Not Applicable *COPY OF PRESCRIPTION DRUG MONITORING REPORT IN PATIENT GEOVANNI: Not Applicable Home Medications: Home Meds Aspirin [[place] Aspirin] 81 mg PO DAILY 02/18/16 [History] Fluticasone Propionate [Flonase] 1 spray NASBOTH ASDIRECTED PRN 02/18/16 [History] Losartan/Hydrochlorothiazide [Losartan-HCTZ 100-25 MG] 1 tab PO DAILY 02/18/16 [History] Simvastatin 20 mg PO DAILY 02/18/16 [History] metFORMIN HCl [Metformin HCl] 1,000 mg PO BID 02/18/16 [History] Amoxicillin/Potassium Clav [Augmentin 500-125 Tablet] 1 each PO BID #18 tablet 08/14/19 [Rx] Furosemide [Lasix] 40 mg PO ASDIRECTED #60 tablet 09/10/21 [Rx] Levothyroxine Sodium [Levothyroxine] 100 mcg PO DAILY #30 capsule 09/10/21 [Rx] Forms: ED Department Discharge Referrals: Reilly Singh MD [Primary Care Provider] - - Discharge Summary/Plan Comment DC Time >30 min.: No (Less than 30 minutes.) Total # of Minutes for Discharge Time: Less than 30 minutes. - General Info Date of Service: 09/11/21 Admission Dx/Problem (Free Text: Septic shock Ischemic right foot Acute renal failure Hyperkalemia Lactic acidosis Respiratory acidosis Subjective Update: Patient - Patient Data Vitals - Most Recent: Last Vital Signs Temp 97.9 F 09/11/21 15:34 Pulse 111 H 09/11/21 15:34 Resp 36 H 09/11/21 15:34 BP 87/41 L 09/11/21 15:34 Pulse Ox 82 L 09/11/21 15:34 Weight - Most Recent: 170 lb 3.2 oz Lab Results - Last 24 hrs: Laboratory Results - last 24 hr 09/11/21 09/11/21 09/11/21 Range/Units 05:14 05:49 06:02 WBC 8.89 (4.23-9.07) K/mm3 RBC 4.14 L (4.63-6.08) M/mm3 Hgb 10.2 L (13.7-17.5) gm/dl Hct 34.9 L (40.1-51.0) % MCV 84.3 (79.0-92.2) fl MCH 24.6 L (25.7-32.2) pg MCHC 29.2 L (32.2-35.5) g/dl RDW Std Deviation 50.4 H (35.1-43.9) fL Plt Count 365 H (163-337) K/mm3 MPV 9.6 (9.4-12.3) fl Neutrophils % (Manual) 85 H (40-60) % Band Neutrophils % 0 (0-10) % Lymphocytes % (Manual) 11 L (20-40) % Atypical Lymphs % 0 % Monocytes % (Manual) 4 (2-10) % Eosinophils % (Manual) 0 L (0.8-7.0) % Basophils % (Manual) 0 L (0.2-1.2) Platelet Estimate Adequate Polychromasia 1+ slight Hypochromasia 1+ slight Anisocytosis 1+ slight RBC Morph Comment Not Reportable Puncture Site Lt radial ABG pH 7.15 L* (7.35-7.45) ABG pCO2 73.2 H* (35.0-45.0) mmHg ABG pO2 70.0 L (80.0-100.0) mmHg ABG HCO3 24.3 (22.0-26.0) meq/L ABG O2 Saturation 85.6 L (96.0-97.0) % ABG Base Excess -4.9 L (-2-2.0) O2 Delivery Device Nasal cannula Oxygen Flow Rate 2.0 Sodium (136-145) mEq/L Potassium (3.5-5.1) mEq/L Chloride (98-107) mEq/L Carbon Dioxide (21-32) mEq/L Anion Gap (5-15) BUN (7-18) mg/dL Creatinine (0.7-1.3) mg/dL Est Cr Clr Drug Dosing mL/min Estimated GFR (MDRD) (>60) mL/min BUN/Creatinine Ratio (14-18) Glucose (70-99) mg/dL POC Glucose 63 L (70-99) mg/dL Lactic Acid (0.4-2.0) mmol/L Calcium (8.5-10.1) mg/dL Magnesium (1.8-2.4) mg/dL Total Bilirubin (0.2-1.0) mg/dL AST (15-37) U/L ALT (16-63) U/L Alkaline Phosphatase (46-116) U/L Total Protein (6.4-8.2) g/dl Albumin (3.4-5.0) g/dl Globulin gm/dL Albumin/Globulin Ratio (1-2) 12/08/21 12/08/21 12/08/21 Range/Units 06:02 06:02 09:18 WBC (4.23-9.07) K/mm3 RBC (4.63-6.08) M/mm3 Hgb (13.7-17.5) gm/dl Hct (40.1-51.0) % MCV (79.0-92.2) fl MCH (25.7-32.2) pg MCHC (32.2-35.5) g/dl RDW Std Deviation (35.1-43.9) fL Plt Count (163-337) K/mm3 MPV (9.4-12.3) fl Neutrophils % (Manual) (40-60) % Band Neutrophils % (0-10) % Lymphocytes % (Manual) (20-40) % Atypical Lymphs % % Monocytes % (Manual) (2-10) % Eosinophils % (Manual) (0.8-7.0) % Basophils % (Manual) (0.2-1.2) Platelet Estimate Polychromasia Hypochromasia Anisocytosis RBC Morph Comment Puncture Site ABG pH (7.35-7.45) ABG pCO2 (35.0-45.0) mmHg ABG pO2 (80.0-100.0) mmHg ABG HCO3 (22.0-26.0) meq/L ABG O2 Saturation (96.0-97.0) % ABG Base Excess (-2-2.0) O2 Delivery Device Oxygen Flow Rate Sodium 142 (136-145) mEq/L Potassium 6.8 H* D (3.5-5.1) mEq/L Chloride 105 (98-107) mEq/L Carbon Dioxide 24 (21-32) mEq/L Anion Gap 19.8 H (5-15) BUN 42 H (7-18) mg/dL Creatinine 2.3 H (0.7-1.3) mg/dL Est Cr Clr Drug Dosing 22.75 mL/min Estimated GFR (MDRD) 27 (>60) mL/min BUN/Creatinine Ratio 18.3 H (14-18) Glucose 95 (70-99) mg/dL POC Glucose (70-99) mg/dL Lactic Acid 4.7 H* 2.6 H* (0.4-2.0) mmol/L Calcium 8.6 (8.5-10.1) mg/dL Magnesium 1.6 L (1.8-2.4) mg/dL Total Bilirubin 0.6 (0.2-1.0) mg/dL AST 428 H (15-37) U/L ALT 179 H (16-63) U/L Alkaline Phosphatase 119 H (46-116) U/L Total Protein 8.5 H (6.4-8.2) g/dl Albumin 2.7 L (3.4-5.0) g/dl Globulin 5.8 gm/dL Albumin/Globulin Ratio 0.5 L (1-2) 09/11/21 Range/Units 09:23 WBC (4.23-9.07) K/mm3 RBC (4.63-6.08) M/mm3 Hgb (13.7-17.5) gm/dl Hct (40.1-51.0) % MCV (79.0-92.2) fl MCH (25.7-32.2) pg MCHC (32.2-35.5) g/dl RDW Std Deviation (35.1-43.9) fL Plt Count (163-337) K/mm3 MPV (9.4-12.3) fl Neutrophils % (Manual) (40-60) % Band Neutrophils % (0-10) % Lymphocytes % (Manual) (20-40) % Atypical Lymphs % % Monocytes % (Manual) (2-10) % Eosinophils % (Manual) (0.8-7.0) % Basophils % (Manual) (0.2-1.2) Platelet Estimate Polychromasia Hypochromasia Anisocytosis RBC Morph Comment Puncture Site ABG pH (7.35-7.45) ABG pCO2 (35.0-45.0) mmHg ABG pO2 (80.0-100.0) mmHg ABG HCO3 (22.0-26.0) meq/L ABG O2 Saturation (96.0-97.0) % ABG Base Excess (-2-2.0) O2 Delivery Device Oxygen Flow Rate Sodium (136-145) mEq/L Potassium (3.5-5.1) mEq/L Chloride (98-107) mEq/L Carbon Dioxide (21-32) mEq/L Anion Gap (5-15) BUN (7-18) mg/dL Creatinine (0.7-1.3) mg/dL Est Cr Clr Drug Dosing mL/min Estimated GFR (MDRD) (>60) mL/min BUN/Creatinine Ratio (14-18) Glucose (70-99) mg/dL POC Glucose 87 (70-99) mg/dL Lactic Acid (0.4-2.0) mmol/L Calcium (8.5-10.1) mg/dL Magnesium (1.8-2.4) mg/dL Total Bilirubin (0.2-1.0) mg/dL AST (15-37) U/L ALT (16-63) U/L Alkaline Phosphatase (46-116) U/L Total Protein (6.4-8.2) g/dl Albumin (3.4-5.0) g/dl Globulin gm/dL Albumin/Globulin Ratio (1-2) Med Orders - Current: Current Medications Atropine Sulfate (Atropine 1% Ophth Soln 5 Ml Bottle) 0 ml SL Q2H PRN PRN Reason: Copius Secretions Morphine Sulfate 100 mg/ (Sodium Chloride) 100 mls @ 2 mls/hr IV TITRATE AMEYA; Protocol Last Admin: 09/11/21 16:28 Dose: 2 mg/hr, 2 mls/hr Documented by: Lorazepam (Lorazepam 2 Mg/Ml Sdv) 2 mg IVPUSH Q1H PRN PRN Reason: Agitation Last Admin: 09/11/21 15:47 Dose: 2 mg Documented by: Sodium Chloride (Sodium Chloride 0.9% 10 Ml Syringe) 10 ml FLUSH ASDIRECTED PRN PRN Reason: Keep Vein Open Discontinued Medications Sodium Chloride (Normal Saline) 500 mls @ 1,000 mls/hr IV .BOLUS ONE Stop: 09/11/21 09:18 Last Admin: 09/11/21 09:25 Dose: 1,000 mls/hr Documented by: Morphine Sulfate 100 mg/ (Sodium Chloride) 100 mls @ 2 mls/hr IV CONTINUOUS AMEYA; Protocol Lorazepam (Lorazepam 2 Mg/Ml Sdv) 2 mg IM Q1H PRN PRN Reason: Agitation - Exam Physical Findings Comments:: exam performed. Pronounced at 1705 on 09/11/2021.
== END 2021-09-11 22:30 | disposition expired | DRG 951 ==
LOC: JD.ED 04:59 → JD.MS 14:59
PROVIDERS: ADMIT Hospitalist; ATTEND Hospitalist
DX: Z51.5 Encounter for palliative care (principal); A41.9 Sepsis, unspecified organism; R41.82 Altered mental status, unspecified; K72.00 Acute and subacute hepatic failure without coma; R65.21 Severe sepsis with septic shock; C85.90 Non-Hodgkin lymphoma, unspecified, unspecified site; E87.2 Acidosis; N17.9 Acute kidney failure, unspecified; G93.40 Encephalopathy, unspecified; I70.221 Atherosclerosis of native arteries of extremities with rest pain, right leg; Z66 Do not resuscitate; I99.8 Other disorder of circulatory system; R45.1 Restlessness and agitation; E78.00 Pure hypercholesterolemia, unspecified; M19.90 Unspecified osteoarthritis, unspecified site; I10 Essential (primary) hypertension; E11.9 Type 2 diabetes mellitus without complications; W06.XXXA Fall from bed, initial encounter; H54.7 Unspecified visual loss; J30.9 Allergic rhinitis, unspecified; M85.80 Other specified disorders of bone density and structure, unspecified site; E87.5 Hyperkalemia; Z91.030 Bee allergy status; Z79.82 Long term (current) use of aspirin; Z79.890 Hormone replacement therapy; Z79.899 Other long term (current) drug therapy; Z79.84 Long term (current) use of oral hypoglycemic drugs; Z98.49 Cataract extraction status, unspecified eye; W19.XXXA Unspecified fall, initial encounter; Z98.890 Other specified postprocedural states
CPT/HCPCS: 36415; 36600; 73610; 80053; 82803; 82947 ×2; 83605 ×2; 83735; 85007; 85027; 93926; J7030; 51702; 99285-25; J2060; J2270